=== PATIENT | female | born 1955 | race Caucasian/White ===

== ENCOUNTER 2017-06-11 07:56 | Outpatient (CLI) | payer BC ==
[2017-06-11 08:26] LABS: Estimated GFR-MDRD - POC Greater than 90
--- NOTE | 2017-06-11 10:16 | CT ---
CT OF THE ABDOMEN AND PELVIS WITH AND WITHOUT IV CONTRAST: INDICATION: A 61-year-old female with a history of urinary bladder stone and urinary frequency. The patient also has a history of gastric bypass, hernia repair, hysterectomy, tonsillectomy, and several plastic livia gical procedures. COMPARISON: Prior CT of the abdomen and pelvis dated 07/08/11. FINDINGS: No renal or ureteral calculus is evident. No visible bladder stone is identified. No hydronephrosis is noted. No solid renal lesion is noted. No urothelial lesion is identified. There is a small hiatal hernia. There is postsurgical change of a gastric bypass procedure. The ant erior abdominal wall hernia repair is stable. There is some mild intrahepatic biliary ductal dilatation likely related to the patient's post cholec ystectomy state. The pancreas, adrenal gland, and spleen appear within normal limits. A small splen ic calcification is seen within the central aspect of the splenic parenchyma. There is no evidence o f bowel obstruction. No free fluid is identified. There is a normal appendix in the right lower deepa drant of the abdomen. The bladder, rectum, and perirectal soft tissues are unremarkable-appearing. There is a stable superior end plate compression abnormality of L1 when compared to a prior MRI dated 06/04/16. No acute osseous abnormality is evident. IMPRESSION: 1. No renal or ureteral calculus. 2. No bladder stone identified. 3. No solid renal lesion is evident. No gross urothelial lesion is identified. 4. Stable postsurgical change of a gastric bypass and cholecystectomy. Stable postsurgical changes of anterior abdominal hernia repair. 5. Stable L1 compression abnormality when compared to a prior MRI dated May 2016. POS: [facility]
[2017-06-11] MEDS ORDERED: Iopamidol 370 76% 100 ML VIAL ONE (16:09)
== END 2017-06-11 07:57 | disposition home or self-care (01) ==
LOC: CT 07:56
DX: N21.0 Calculus in bladder (principal); M51.06 Intervertebral disc disorders with myelopathy, lumbar region; Z90.49 Acquired absence of other specified parts of digestive tract; Z98.890 Other specified postprocedural states
CPT/HCPCS: 74178; 82565

== ENCOUNTER 2018-04-04 16:42 | Emergency (ER) | payer BC ==
[2018-04-04] MEDS ORDERED: diphenhydrAMINE 12.5 MG/5 ML UDCUP ONE (17:21)
[2018-04-04] MEDS ORDERED: diphenhydrAMINE 50 MG/ML VIAL ONE (17:24)
[2018-04-04] MEDS ORDERED: Ketorolac Tromethamine 30 MG/ML VIAL ONE (17:24)
[2018-04-04] MEDS ORDERED: Metoclopramide HCl 10 MG/2 ML VIAL ONE (17:24)
[2018-04-04] MEDS ORDERED: Ondansetron PF 4 MG/2 ML Vial ONE (17:59)
== END 2018-04-04 19:24 | disposition home or self-care (01) ==
LOC: SCSER 16:42
DX: G43.909 Migraine, unspecified, not intractable, without status migrainosus (principal); Z79.899 Other long term (current) drug therapy
CPT/HCPCS: 96365; 96375; J1200; J1885; J2405; J2765; Q0163

== ENCOUNTER 2018-11-23 15:32 | Outpatient (CLI) | payer BC ==
--- NOTE | 2018-11-23 16:05 | RAD ---
LUMBAR SPINE: 11/23/18 Two views. INDICATIONS: Back pain. Correlation made to lateral film of chest 02/23/17. There is an anterior wedge deformity involving the L1 vertebrae. This is a stable finding when compar ed to the chest film of 02/23/17. The other lumbar vertebrae maintain normal height and alignment. The disc spaces are maintained. Post erior alignment is preserved. No evidence of listhesis. IMPRESSION: Mild anterior wedge compression of the L1 vertebrae. This is stable when compared to an exam of 8. It was also present on MRI exam of 06/04/16. POS: [facility]
== END 2018-11-23 15:33 | disposition home or self-care (01) ==
LOC: BICRAD 15:32
PROVIDERS: ATTEND Physical Medicine & Rehabilitation
DX: M54.5 Low back pain (principal); S34.101A Unspecified injury to L1 level of lumbar spinal cord, initial encounter
CPT/HCPCS: 72100; 80053; 82306; 83540; 83550; 83735; 85025

== ENCOUNTER 2018-12-08 16:23 | Outpatient (CLI) | payer BC ==
--- NOTE | 2018-12-09 07:59 | MRI ---
Cervical spine MRI without contrast: 12/08/2018 COMPARISON: 06/04/2016 HISTORY: Neck pain and bilateral shoulder pain, cervical stenosis TECHNIQUE: Multiplanar multisequence MR imaging of cervical spine without contrast FINDINGS: The sagittal STIR imaging demonstrates no focal area of osseous marrow edema. Cervical vert ebral body height and alignment appears within normal limits. C2-3: No significant central canal or neural foraminal stenosis. C3-4: No significant central canal or neural foraminal stenosis. Mild disc bulge with partial effacem ent of the ventral thecal sac. C4-5: Small right paracentral disc protrusion, unchanged. No significant central canal or neural fora kai stenosis. C5-6: Minimal disc bulge with no central canal or neural foraminal stenosis. C6-7: No significant central canal or neural foraminal stenosis. C7-T1: No significant central canal or neural foraminal stenosis. Mild central disc protrusion. No focal area of abnormal signal intensity is identified within the cervical cord. IMPRESSION: Mild disc disease within the cervical spine with no significant central canal or neural f oraminal stenosis.
--- NOTE | 2018-12-09 08:02 | MRI ---
Lumbar spine MRI without contrast: 12/08/2018 COMPARISON: 06/04/2016 HISTORY: Localized back pain, history of L1 fracture TECHNIQUE: Multiplanar multisequence MR imaging of the lumbar spine obtained without contrast FINDINGS: The sagittal STIR imaging demonstrates no focal area of osseous marrow edema. Stable mild a nterior wedge compression fracture of L1 noted. On the basis of 5 lumbar type vertebral bodies, conus medullaris terminates at L1. T12-L1: Disc space narrowing and disc desiccation. Mild bilateral facet hypertrophy. No significant c entral canal or neural foraminal stenosis. L1-2: No significant central canal or neural foraminal stenosis L2-3: Mild bilateral facet hypertrophy. No central canal or neural foraminal stenosis. L3-4: No significant central canal or neural foraminal stenosis. L4-5: No significant central canal or neural foraminal stenosis. Mild bilateral facet hypertrophy. L5-S1: Mild bilateral facet hypertrophy. No significant central canal or neural foraminal stenosis. The visualized retroperitoneal structures appear grossly unremarkable. IMPRESSION: No significant central canal or neural foraminal stenosis within the lumbar spine.
== END 2018-12-08 16:24 | disposition home or self-care (01) ==
LOC: MRI 16:23
PROVIDERS: ATTEND Physical Medicine & Rehabilitation
DX: M48.02 Spinal stenosis, cervical region (principal); M54.5 Low back pain
CPT/HCPCS: 72141; 72148

== ENCOUNTER 2019-05-01 15:22 | Outpatient (CLI) | payer BC ==
--- NOTE | 2019-05-01 15:38 | RAD ---
XR Chest Pa Lat STANDARD HISTORY: Cough and dyspnea COMPARISON: 02/23/2017 FINDINGS: The heart size is normal. The lungs are well expanded without focal areas of consolidation, pneumothorax or pleural effusions. IMPRESSION: No radiographic evidence of acute cardiopulmonary process.
== END 2019-05-01 15:23 | disposition home or self-care (01) ==
LOC: BICRAD 15:22
PROVIDERS: ATTEND Physician Assistant Medical
DX: K21.9 Gastro-esophageal reflux disease without esophagitis (principal); R06.00 Dyspnea, unspecified
CPT/HCPCS: 71046

== ENCOUNTER 2019-08-11 09:50 | Outpatient (CLI) | payer BC ==
--- NOTE | 2019-08-11 11:30 | MRI ---
MRI OF THE LEFT KNEE WITHOUT CONTRAST: INDICATION: A 63-year-old female with a history of a lateral tibial plateau fracture after a fall in December of 2018. Evaluation was ordered to determine healing of the tibial plateau fracture. COMPARISON: Prior MRI of the left knee dated February 02, 2019. FINDINGS: Since the comparison examination, the nondisplaced, nondepressed lateral tibial plateau fracture with fracture extension into the intercondylar eminence has intervally healed. No definite residual jakob ow edema is evident. There is a slightly more pronounced signal abnormality involving the posterior root of the lateral me niscus. There is some lateral extrusion of the lateral meniscus. These findings are most suspicious for a worsening horizontal oblique tear involving the posterior root and central posterior horn of t he lateral meniscus. The medial meniscus remains intact. The articular cartilage of the femorotibial compartments remain well maintained. Very small marginal osteophytes are seen involving the femorotibial compartments. There is an area of focal full-thickn ess articular delamination involving the median patellar ridge on image 8 of series 3. The MCL, ACL, PCL, and LCLC are intact. There is very mild tendinosis involving the proximal patella r tendon that appears slightly more pronounced than on the prior exam. No large joint effusion or popliteal cyst is identified. No lymphadenopathy is evident. IMPRESSION: 1. Interval healing of a nondisplaced nondepressed lateral tibial plateau fracture. 2. Worsening horizontal oblique tear involving the posterior root of the lateral meniscus with parti al lateral extrusion of the meniscus. 3. Interval development of full-thickness articular cartilage delaminating tear involving the median patellar ridge superiorly on the patella. 4. Mild proximal patellar tendinosis has developed in the interim. POS: [facility]
== END 2019-08-11 09:51 | disposition home or self-care (01) ==
LOC: TBSIIMAG 09:50
PROVIDERS: ATTEND Orthopaedic Surgery
DX: M25.562 Pain in left knee (principal); S82.145D Nondisplaced bicondylar fracture of left tibia, subsequent encounter for closed fracture with routine healing; M67.864 Other specified disorders of tendon, left knee; S83.282A Other tear of lateral meniscus, current injury, left knee, initial encounter

== ENCOUNTER 2019-12-22 11:08 | Outpatient (CLI) | payer BC ==
--- NOTE | 2020-01-02 11:37 | MMO ---
Bilateral MAMMO Bilat Screen [facility]. CLINICAL HISTORY: Patient is 64 years old and is seen for screening. The patient has no family history of breast cancer. The patient has no personal history of cancer. The patient has a history of bilateral mastopexy in 1999. VIEWS: The views performed were: bilateral craniocaudal with tomosynthesis and bilateral mediolateral oblique with tomosynthesis. FILMS COMPARED: The present examination has been compared to prior imaging studies performed at [facility] on 12/16/2016, 09/01/2017 and 11/30/2018. This study has been interpreted with the assistance of computer-aided detection. MAMMOGRAM FINDINGS: The breasts are heterogeneously dense, which could obscure a lesion on mammography. Finding 1: There are stable benign appearing calcifications seen in both breasts. Finding 2: There are stable benign appearing densities seen in both breasts. There are no suspicious masses, suspicious calcifications, or new areas of architectural distortion. IMPRESSION: THERE IS NO MAMMOGRAPHIC EVIDENCE OF MALIGNANCY. A ROUTINE FOLLOW-UP MAMMOGRAM IN 1 YEAR IS RECOMMENDED. THE RESULTS OF THIS EXAM WERE SENT TO THE PATIENT. ACR BI-RADS Category 2 - Benign finding MAMMOGRAPHY NOTE: 1. A negative mammogram report should not delay a biopsy if a dominant of clinically suspicious mass is present. 2. Approximately 10% to 15% of breast cancers are not detected by mammography. 3. Adenosis and dense breasts may obscure an underlying neoplasm. Reported by: BEATRIS MAI MD Electonically Signed: [id number]
== END 2019-12-22 11:09 | disposition home or self-care (01) ==
LOC: BICMAMMO 11:08
PROVIDERS: ATTEND Physician Assistant
DX: Z12.31 Encounter for screening mammogram for malignant neoplasm of breast (principal)
CPT/HCPCS: 77063; 77067

== ENCOUNTER 2020-02-06 10:41 | Outpatient (CLI) | payer BC ==
--- NOTE | 2020-02-06 11:37 | MRI ---
MRI Lower Ext Jt Lt WO Con History: Both complex tear lateral meniscus left knee Comparison: MRI left knee July 2019 Findings: Medial meniscus: Intact Lateral meniscus: Radial oblique tear involving the root and posterior horn.. Low-grade progressive b lunting and free edge fraying lateral meniscal body. Mild 1 to 2 mm lateral gutter extrusion. ACL, PCL, MCL and LCL are all intact. Extensor mechanism: Mild proximal patellar tendinosis. Cartilage: Patellofemoral compartment: Few full-thickness chondral fissures of the patellar apex with subcortica l reactive marrow changes. Medial compartment: Intact Lateral compartment: Relatively intact. Few chondral fissures which are less than 50% depth of the po sterior weightbearing surface lateral tibial plateau. Bones: No acute fracture or malalignment. Soft tissues: Small joint effusion. No significant popliteal cyst. Small 4 x 3 mm body just posterior to the popliteus tendon the lateral recess coronal image 23. Muscles: Muscle signal and bulk is normal. Impression: 1. Low-grade progression of the radial oblique tear posterior horn lateral meniscus extending to the root. Only minimally progressive free edge blunting and fraying lateral meniscal body. 2. 4 x 3 mm body within the lateral joint space just posterior to the popliteus tendon and just deep to the LCL origin.
--- NOTE | 2020-02-06 15:04 | MRI ---
BRAIN MRI WITH AND WITHOUT CONTRAST: DATE: 02/06/2020. COMPARISON: None. HISTORY: Dizziness with nausea, hearing loss, multiple mechanical falls, sensorineural hearing loss. TECHNIQUE: Multiplanar, multisequence MR imaging of the brain is obtained with and without contrast using an int ernal auditory canal protocol. FINDINGS: The diffusion weighted imaging demonstrates no evidence for acute infarction. Arterial flow voids at the axial level of the skull base demonstrate no acute findings. The vertebra l arteries and basilar artery appear relatively hypoplastic with patent bilateral posterior communica ting arteries. No midline shift or mass effect is noted. No ventricular enlargement is seen. There are a few subcentimeter scattered foci of increased T2 and FLAIR signal within the white matter sugg esting small-vessel disease. There is a partially empty sella turcica. Thin section T2 weighted imaging through the skull base demonstrates no evidence for an abnormality a t the level of the cerebellopontine angle, internal auditory canal, cochlea, vestibule, or semicircul ar canals on either side. Visualized paranasal sinuses/mastoid air cells appear grossly unremarkable. Thin section postcontrast imaging demonstrates no abnormal enhancement in the region of the internal auditory canal, cochlea, vestibule, or semicircular canals on either side. The whole brain postcont rast imaging demonstrates no abnormal enhancement within the brain parenchyma. IMPRESSION: No acute findings. Incidental findings as described above. POS: [facility]
== END 2020-02-06 10:42 | disposition home or self-care (01) ==
LOC: TBSIIMAG 10:41
PROVIDERS: ATTEND Orthopaedic Surgery
DX: M23.201 Derangement of unspecified lateral meniscus due to old tear or injury, left knee (principal); H83.2X9 Labyrinthine dysfunction, unspecified ear; H90.5 Unspecified sensorineural hearing loss
CPT/HCPCS: 70553

== ENCOUNTER 2020-10-02 09:37 | Outpatient (CLI) | payer BC | END 2020-10-02 09:38 | disposition home or self-care (01) | LOC: BICMAMMO 09:37 | PROVIDERS: ATTEND Physician Assistant | DX: Z13.820 Encounter for screening for osteoporosis (principal); M85.89 Other specified disorders of bone density and structure, multiple sites; Z78.0 Asymptomatic menopausal state | CPT/HCPCS: 77080 ==

== ENCOUNTER 2021-05-16 09:01 | Outpatient (CLI) | payer BC | END 2021-05-16 09:02 | disposition home or self-care (01) | LOC: BICMAMMO 09:01 | PROVIDERS: ATTEND Family Medicine | DX: Z12.31 Encounter for screening mammogram for malignant neoplasm of breast (principal); Z98.890 Other specified postprocedural states | CPT/HCPCS: 77063; 77067 ==

== ENCOUNTER 2021-11-03 11:06 | Outpatient (CLI) | payer BC | END 2021-11-03 11:07 | disposition home or self-care (01) | LOC: BICRAD 11:06 | PROVIDERS: ATTEND Physician Assistant | DX: M25.552 Pain in left hip (principal); M16.12 Unilateral primary osteoarthritis, left hip ==

== ENCOUNTER 2021-11-12 09:22 | Day surgery (SDC) | payer BC ==
[~2021-11-12 09:22] MED LIST: Acetaminophen 500 MG TAB PO SCH; Furosemide 20 MG/2 ML VIAL SLOW IVP SCH; diphenhydrAMINE 25 MG CAP PO SCH
[2021-11-12] MEDS ORDERED: Acetaminophen 500 MG TAB ONE (09:48)
[2021-11-12] MEDS ORDERED: diphenhydrAMINE 25 MG CAP ONE (09:48)
[2021-11-12] MEDS ORDERED: Cyanocobalamin 1000 MCG/ML VIAL IM SCH (11:30)
[2021-11-12] MEDS ORDERED: Cyanocobalamin 1000 MCG/ML VIAL ONE (12:57)
[2021-11-12 13:53] VITALS: BP 107/63
[2021-11-12 16:15] VITALS: TEMP 97.7
== END 2021-11-12 16:23 | disposition home or self-care (01) ==
LOC: ONC/OP 09:22
PROVIDERS: ATTEND Internal Medicine Hematology & Oncology
PROC: 30233N1 Transfusion of Nonautologous Red Blood Cells into Peripheral Vein, Percutaneous Approach (ICD-10-PCS; principal; 2021-11-12)
DX: D50.8 Other iron deficiency anemias (principal); D51.1 Vitamin B12 deficiency anemia due to selective vitamin B12 malabsorption with proteinuria; D69.6 Thrombocytopenia, unspecified; Z88.1 Allergy status to other antibiotic agents; Z88.5 Allergy status to narcotic agent; Z88.8 Allergy status to other drugs, medicaments and biological substances
CPT/HCPCS: 36430; 86850; 86900; 86901; 96372; 96375; J1940; J3420; P9016

== ENCOUNTER 2022-02-05 07:38 | Outpatient (CLI) | payer BC, MEDICARE | END 2022-02-05 07:39 | disposition home or self-care (01) | LOC: BICMAMMO 07:38 | PROVIDERS: ATTEND Physician Assistant | DX: N63.11 Unspecified lump in the right breast, upper outer quadrant (principal) | CPT/HCPCS: G0279 ==

== ENCOUNTER 2023-05-11 19:21 | Observation (INO) | payer BC, MEDICARE ==
[2023-05-11] MEDS ORDERED: Acetaminophen 325 MG TAB PO PRN (22:30)
[2023-05-11] MEDS ORDERED: hydrALAZINE 20 MG/ML VIAL SLOW IVP PRN (22:33)
[2023-05-11] MEDS: Morphine 4 MG/ML VIAL SLOW IVP PRN (23:19)
[2023-05-11] MEDS: Sodium Chloride 0.9% 1,000 ML IV SCH (23:20)
[2023-05-11] MEDS: TETANUS, DIPHTHERIA TOX,ADULT (TDVAX) 0.5 ML VIAL IM ONE (23:28)
[2023-05-11] MEDS: Ondansetron PF 4 MG/2 ML Vial IVP PRN (23:37)
[2023-05-12 05:02] VITALS: BMI 24.5
[2023-05-12 05:56] LABS: #Eosinphils 0.2 thou/uL (0.0-0.7); #Monocytes 0.6 thou/uL (0.11-0.59); #Neutrophils 2.5 thou/uL (1.40-6.50); %Basophils 0.5 % (0.0-1.0); %Eosinophils 2.6 % (0.0-10.0); %Monocytes 11.1 % (0.0-10.0); %Neutrophils 44.6 % (42.0-75.0); Hematocrit 35.7 % (36.0-47.0); Hemoglobin 11.2 g/dL (12.0-16.0); Mean Corpuscular HGB CONC 31.4 g/dL (32.0-36.0); Mean Platelet Volume 11.1 fL (7.4-10.4); Platelet Count 173 10x3/uL (130-400); RBC Distribution Width 14.5 % (11.5-14.5); Red Blood Cell (RBC) Count 4.15 mill/uL (4.20-5.40); White Blood Cell (WBC) Count 5.7 10x3/uL (4.8-10.8)
[2023-05-12 06:08] LABS: Anion Gap 8 mmol/L (10-20); BUN (Urea Nitrogen) 8 mg/dL (9.8-20.1); Calc. Creatinine Clearance 98 mL/min (70-130); Carbon Dioxide 26 mmol/L (23-31); Chloride 111 mmol/L (98-107); Estimated GFR 97; Glucose 81 mg/dL (80-115); Sodium 141 mmol/L (136-145)
[2023-05-12] MEDS: Famotidine/PF 20 mg/2ml Vial SLOW IVP SCH (08:17)
[2023-05-12] MEDS ORDERED: RIZATRIPTAN 10 MG PO PRN (08:25)
[2023-05-12] MEDS ORDERED: Rimegepant Sulfate [Nurtec Odt] 75 MG Tab.Rapdis PO PRN (08:36)
[2023-05-12] MEDS ORDERED: Zolpidem Tartrate 5 MG TAB PO PRN (08:37)
[2023-05-12] MEDS ORDERED: ALPRAZOLAM 0.25 MG PO PRN (08:39)
[2023-05-12] MEDS: Acetaminophen 500 MG TAB PO SCH (09:10)
[2023-05-12] MEDS: Pregabalin 75 MG CAP PO SCH (09:10)
[2023-05-12] MEDS: tiZANidine HCl 4 MG TAB PO SCH (09:11)
[2023-05-12] MEDS: Lisinopril 20 MG TAB PO SCH (09:11)
[2023-05-12] MEDS ORDERED: Benzonatate 100 MG CAP PO PRN (09:48)
[2023-05-12] MEDS ORDERED: Ondansetron ODT 4 MG TAB SL PRN (09:54)
[2023-05-12] MEDS ORDERED: Cholecalciferol 1,000 UNITS (25 MCG) TAB PO SCH (10:00)
[2023-05-12 13:23] VITALS: BP 126/78; TEMP 98.4
[2023-05-12] MEDS ORDERED: Pramipexole Di-HCl 0.25 MG TAB PO SCH (21:00)
[2023-05-12] MEDS ORDERED: QUEtiapine 25 MG TAB PO SCH (21:00)
[2023-05-14] MEDS ORDERED: fentaNYL 75 mcg/hour Patch TD SCH (09:00)
== END 2023-05-12 13:00 | disposition home or self-care (01) ==
LOC: SURG B 22:15
PROVIDERS: ADMIT Student in an Organized Health Care Education/Training Program; ATTEND Student in an Organized Health Care Education/Training Program
DX: S06.6XAA Traumatic subarachnoid hemorrhage with loss of consciousness status unknown, initial encounter (principal); Z88.0 Allergy status to penicillin; Z88.1 Allergy status to other antibiotic agents; Z88.2 Allergy status to sulfonamides; Z88.5 Allergy status to narcotic agent; Z90.49 Acquired absence of other specified parts of digestive tract; Z90.710 Acquired absence of both cervix and uterus; Z88.8 Allergy status to other drugs, medicaments and biological substances; Z91.048 Other nonmedicinal substance allergy status; V89.2XXA Person injured in unspecified motor-vehicle accident, traffic, initial encounter; S06.6X0A Traumatic subarachnoid hemorrhage without loss of consciousness, initial encounter; V43.52XA Car driver injured in collision with other type car in traffic accident, initial encounter; I10 Essential (primary) hypertension
CPT/HCPCS: 36415; 70450; 71045; 72125; 80048; 80053; 85025; 85610; 85730; 93005; 93010; 96374; 96375; J2270; J2405; J7050; S0028

== ENCOUNTER 2023-08-11 09:04 | Outpatient (CLI) | payer BC, MEDICARE | END 2023-08-11 09:05 | disposition home or self-care (01) | LOC: BICMAMMO 09:04 | PROVIDERS: ATTEND Physician Assistant | DX: Z12.31 Encounter for screening mammogram for malignant neoplasm of breast (principal); Z98.890 Other specified postprocedural states | CPT/HCPCS: 77063; 77067 ==

== ENCOUNTER 2023-10-12 15:54 | Outpatient (CLI) | payer BC | END 2023-10-12 15:55 | disposition home or self-care (01) | LOC: SCSRAD 15:54 | PROVIDERS: ATTEND Nurse Practitioner Family | DX: R06.02 Shortness of breath (principal); R91.8 Other nonspecific abnormal finding of lung field | CPT/HCPCS: 71046 ==

== ENCOUNTER 2023-12-14 10:26 | Outpatient (CLI) | payer BC, MEDICARE ==
[~2023-12-14 10:26] MED LIST changes: -Acetaminophen 500 MG TAB PO SCH; -Furosemide 20 MG/2 ML VIAL SLOW IVP SCH; +Magnevist 469MG/ML 20 ML VIAL ONE; -diphenhydrAMINE 25 MG CAP PO SCH
== END 2023-12-14 10:27 | disposition home or self-care (01) ==
LOC: CT 10:26
PROVIDERS: ATTEND Physician Assistant
DX: J18.9 Pneumonia, unspecified organism (principal); R26.9 Unspecified abnormalities of gait and mobility; R41.3 Other amnesia; R41.0 Disorientation, unspecified; R91.8 Other nonspecific abnormal finding of lung field; J18.1 Lobar pneumonia, unspecified organism; J98.09 Other diseases of bronchus, not elsewhere classified
CPT/HCPCS: 70553; 71250; 76376

== ENCOUNTER 2024-10-20 11:20 | Outpatient (CLI) | payer BC | END 2024-10-20 11:21 | disposition home or self-care (01) | LOC: BICRAD 11:20 | PROVIDERS: ATTEND Obstetrics & Gynecology Female Pelvic Medicine and Reconstructive Surgery | DX: R35.0 Frequency of micturition (principal); Z98.890 Other specified postprocedural states | CPT/HCPCS: 72220 ==